=== PATIENT | male | born 1990 | race African-American/Black ===

== ENCOUNTER 2020-07-15 10:53 | Emergency (ER) | payer OTHER, SELFPAY ==
--- NOTE | ~2020-07-15 | US_ITS ---
EXAMINATION: US SCROTUM CLINICAL INFORMATION: Right-sided pain. COMPARISON: Previous exam July 2019 TECHNIQUE: A sonogram of the scrotum was performed assessing nolasco-scale appearance and color Doppler flow. Spectral Doppler analysis of the arterial and venous flow were performed in the testes bilaterally. FINDINGS: RIGHT: Right testicle measures 5.1 x 2.4 x 3.2 cm, volume 21 mL. There are small punctate calcifications in the right testicle or microlithiasis. No focal testicular parenchymal lesions are visualized. Spectral Doppler analysis of the arterial and venous flow is normal in the right testis. Right epididymal head is normal in size. There is a small right hydrocele. No right varicocele is seen. Right epididymal Doppler flow is normal. LEFT: Left testicle measures 5 x 1.9 x 2.8 cm, volume 14 mL. There are small punctate calcifications in the left testicle or microlithiasis. No focal testicular parenchymal lesions are visualized. Spectral Doppler analysis of the arterial and venous flow is normal in the left testis. Left epididymal head is normal in size. There is a small left hydrocele. No left varicocele is seen. Left epididymal Doppler flow is normal. US/US scrotum doppler IMPRESSION: Small bilateral calcifications suggestive of microlithiasis. Small bilateral hydroceles. No evidence of torsion.
--- NOTE | ~2020-07-15 | US_ITS ---
EXAMINATION: Grayscale color and Doppler imaging of the scrotum including waveform spectral analysis of the bilateral arteries and veins in the testicles. See report from ultrasound scrotum Doppler exam the same day.
[2020-07-15 11:16] VITALS: BP 113/75; PULSE 95; RESP 18; TEMP 36.6; O2SAT 98; BMI 25.8
--- NOTE | 2020-07-15 11:16 | ED.MALEGU ---
HPI - Male Genitourinary General Chief complaint: Urogenital-Male Stated complaint: testicular pain Time Seen by Provider: 07/15/20 11:14 Source: patient and old records reviewed Mode of arrival: ambulatory Limitations: no limitations History of Present Illness HPI Narrative: 29 yo male prior visits for testicular pain - states his R testicle swelled the other day not related to trauma or intercourse - wants STI testing MD Complaint: testicle pain and testicle swelling Onset (ago): day(s) (2) Duration: now resolved Location: right testicle Severity: mild Quality: dull Relieving factors: none Exacerbating factors: none Context: other (hx of prior episodes) Associated symptoms: Reports denies other symptoms Related Data Allergies Allergy/AdvReac Type Severity Reaction Status Date / Time Sulfa (Sulfonamide Allergy Severe HIVES Verified 07/15/20 11:21 Antibiotics) [SULFA (SULFONAMIDE ANTIBIOTICS)] Penicillins [PCN] Allergy Unknown UNKNOWN Verified 07/15/20 11:21 Review of Systems Review of Systems: Constitutional : No Weight loss, No Fever, No Chills, No Fatigue, No Malaise ENT/Mouth : No sore throat, No Rhinorrhea Eyes: No Eye Pain, No Swelling, No Redness Cardiovascular : No Chest Pain, No SOB, No Dyspnea on Exertion, No Orthopnea, No Edema, No Palpitations Respiratory : No Cough, No Sputum, No Wheezing Gastrointestinal : No Nausea, No Vomiting, No Diarrhea, No Constipation, No abdominal Pain, No Hematochezia, No Melena Genitourinary : No Dysuria, No Urinary Frequency, No Hematuria, pos testicle pain, no discharge Musculoskeletal : No joint pain, No Myalgias, No Joint Swelling Skin : No Skin Lesions, No rash Neuro : No Weakness, No Numbness, No Dizziness, No Headache Psych : No Anxiety/Panic, No Depression All other systems reviewed and are negative [facility] Past Medical History Medical History (Updated 07/15/20 @ 12:38 by Manuela Shaw DO) Testicular pain Social History Social History (Updated 07/15/20 @ 11:30 by Manuela Shaw DO) Smoking Status: Never smoker Use of substances other than those prescribed or required for medical reasons: No Advance Directives: No Advance Directives Information Provided: No Physical Exam Vital Signs: Vital Signs: Last Vital Signs Temp 98 F 07/15/20 11:16 Pulse 95 07/15/20 11:16 Resp 18 07/15/20 11:16 BP 113/75 07/15/20 11:16 Pulse Ox 98 07/15/20 11:16 Body Mass Index 25.8 Appearance: Alert. Oriented X3. No acute distress. Eyes: Pupils equal, round and reactive to light. ENT: Pharynx normal. Neck: Normal inspection. Neck supple. CVS: Normal heart rate and rhythm. Pulses normal. Respiratory: No respiratory distress. Breath sounds normal. Abdomen: Soft and nontender. no mass felt : normal penis, no rash, no mass felt, no scrotal swelling or ttp Skin: Skin warm and dry. Normal skin color. Normal skin turgor. Extremities: No lower extremity edema. No calf ttp Neuro: Oriented X 3. No motor deficit. No sensory deficit. Course Course Course Narrative: patient had to get his child, had to leave ED will call him with positive results called with results of US MDM - Male Genitourinary MDM Narrative Medical decision making narrative: 29 yo male with hx of testicular pain that has resolved - has had negative workups in the past, has benign exam - US for hydrocele mass ordered, UA and STI panel - dispo per results and findings. Lab Data Labs: Lab Results 07/15/20 Range/Units 12:09 Urine Color YELLOW Urine Appearance CLEAR Urine pH 8.0 (5.0-8.0) Ur Specific [place] 1.020 (1.005-1.025) Urine Protein NEG (NEG-TRACE) MG/DL Urine Glucose (UA) NEG (NEG) MG/DL Urine Ketones NEG (NEG) MG/DL Urine Blood NEG (NEG) Urine Nitrite NEG (NEG) Ur Leukocyte Esterase NEG (NEG) Discharge Plan Discharge Clinical Impression: Pain in testicle Qualifiers: Laterality: right Qualified Code(s): N50.811 - Right testicular pain Patient Disposition: Elopement Instructions: Testicle Pain (ED) Additional Instructions: return to ED for any worsening symptoms or concerns
[2020-07-15 12:30] LABS: Glucose Urine UA NEG (NEG); Leukocyte Esterase Urine NEG (NEG); Nitrite Urine NEG (NEG); Urine Blood NEG (NEG); Urine Ketones NEG (NEG); Urine Protein NEG (NEG-TRACE)
[2020-07-15 12:31] LABS: Appearance Urine CLEAR; Color Urine YELLOW
[2020-07-15 15:08] LABS: CT PCR NOT DETECTED (Not Detect.); NG PCR NOT DETECTED (Not Detect.)
== END 2020-07-15 12:30 | disposition left against medical advice (07) ==
PROVIDERS: Emergency Provider Emergency Medicine; PCP Internal Medicine
DX: N50.811 Right testicular pain (principal)
CPT/HCPCS: 76870; 81003; 87491; 87591; 93975; 99283

== ENCOUNTER 2020-07-19 20:44 | Emergency (ER) | payer OTHER, SELFPAY ==
[2020-07-19 20:46] VITALS: BP 107/57; PULSE 89; RESP 18; TEMP 37.1; O2SAT 99; BMI 24.3
[2020-07-19 21:09] LABS: Glucose Urine UA NEG (NEG); Leukocyte Esterase Urine NEG (NEG); Nitrite Urine NEG (NEG); Specific Gravity - Urine >= 1.030 (1.005-1.025); Urine Blood NEG (NEG); Urine Ketones NEG (NEG); Urine Protein NEG (NEG-TRACE)
[2020-07-19 21:12] LABS: Appearance Urine CLEAR; Color Urine YELLOW
[2020-07-19] MEDS: Azithromycin 500 MG TABLET 1000 MG PO (21:26)
[2020-07-19] MEDS: cefTRIAXone sodium 500 MG, Lidocaine HCl 1 % MPF 1 ML IM (21:26)
--- NOTE | 2020-07-19 21:38 | ED.MALEGU ---
HPI - Male Genitourinary General Chief complaint: Urogenital-Male Stated complaint: ?UTI Time Seen by Provider: 07/19/20 21:00 Source: patient Mode of arrival: ambulatory Limitations: no limitations History of Present Illness HPI Narrative: 29-year-old male with no significant past medical history presents with positive known STI contact, and penile discharge. He does not describe any other symptoms, denies fevers, chills, chest pain or pressure, palpitations, abdominal pain, abdominal distention, dysuria, hematuria, and any other concerning symptoms. He denies testicular pain, testicular swelling, groin pain, or penile pain. MD Complaint: penile discharge and possible STD exposure Onset (ago): day(s) Duration: constant Location: penis Severity: mild Relieving factors: none Exacerbating factors: none Context: new sexual partner and known STD exposure Associated symptoms: Reports denies other symptoms Related Data Sexually active: Yes Allergies Allergy/AdvReac Type Severity Reaction Status Date / Time Sulfa (Sulfonamide Allergy Severe HIVES Verified 07/19/20 20:46 Antibiotics) [SULFA (SULFONAMIDE ANTIBIOTICS)] Penicillins [PCN] Allergy Unknown UNKNOWN Verified 07/19/20 20:46 Review of Systems Review of Systems: Constitutional: No Fever, No Chills ENT/Mouth: No Ear Pain, No Hoarseness, No sore throat Eyes: No Eye Pain, No Swelling, No Redness, No Foreign Body Cardiovascular: No Chest Pain, No SOB Respiratory: No Cough, No Dyspnea Gastrointestinal: No Nausea, No Vomiting, No Diarrhea, No abdominal Pain Genitourinary: Positive penile discharge, No Dysuria, No Hematuria Musculoskeletal: No joint pain, No Myalgias, No Joint Swelling Skin: No Skin lacerations, No rash Neuro: No Weakness, No Numbness, No Paresthesias, No Loss of Consciousness, No Dizziness, No Headache Psych: No Anxiety/Panic, No Depression Heme/Lymph: no easy bruising, no Lymphadenopathy Endocrine: No Polyuria, No Polydipsia Yes all other systems are reviewed and are negative [facility] Past Medical History Attestation statement: The following information was validated with the patient. Source: old records reviewed Medical History (Updated 07/19/20 @ 21:41 by Chely Arzola NP) Testicular pain Social History Social History Alcohol intake: never Smoking Status: Never smoker Smoked in Last 30 Days: No Use of substances other than those prescribed or required for medical reasons: No Substance Use Type: Marijuana Advance Directives: No Advance Directives Information Provided: Yes Physical Exam Vital Signs: Vital Signs: Last Vital Signs Temp 98.8 F 07/19/20 20:46 Pulse 89 07/19/20 20:46 Resp 18 07/19/20 20:46 BP 107/57 L 07/19/20 20:46 Pulse Ox 99 07/19/20 20:46 Body Mass Index 24.3 Appearance: Alert. Oriented X3. No acute distress. Eyes: Pupils equal, round and reactive to light. ENT: Pharynx normal. Neck: Normal inspection. Neck supple. CVS: Normal heart rate and rhythm. Pulses normal. Respiratory: No respiratory distress. Breath sounds normal. Abdomen: Soft and nontender. Skin: Skin warm and dry. Normal skin color. Normal skin turgor. Extremities: No lower extremity edema. Neuro: No motor deficit. No sensory deficit. Course Course Course Narrative: 29-year-old male presents with positive STI exposure. Plan of care is to treat with azithromycin and ceftriaxone IM. We will test for syphilis, patient will return for treatment if syphilis test is positive. Detailed description regarding need for treatment, patient verbalized understanding of and agrees to plan of care. MDM - Male Genitourinary MDM Narrative Medical decision making narrative: Syphilis, chlamydia, gonorrhea Differential Diagnosis Differential diagnosis: Likely urinary tract infection Medical Records Attestation: I reviewed the patient's medical records. Lab Data Attestation: I reviewed the patient's lab results. Labs: Lab Results 07/19/20 Range/Units 20:57 Urine Color YELLOW Urine Appearance CLEAR Urine pH 6.0 (5.0-8.0) Ur Specific [place] >= 1.030 H (1.005-1.025) Urine Protein NEG (NEG-TRACE) MG/DL Urine Glucose (UA) NEG (NEG) MG/DL Urine Ketones NEG (NEG) MG/DL Urine Blood NEG (NEG) Urine Nitrite NEG (NEG) Ur Leukocyte Esterase NEG (NEG) Discharge Plan Discharge Clinical Impression: Sexually transmissible disease Patient Disposition: Home, Self-Care Instructions: Chlamydia (ED), Gonorrhea (ED), Pharyngitis (ED) Additional Instructions: You were evaluated for suspicion of sexually transmitted infection. We treated you for chlamydia and gonorrhea with azithromycin and ceftriaxone. You were also tested for syphilis. If syphilis test comes back positive you must return for treatment. Treatment is an injection of penicillin. Please inform your partner(s) that you were treated for sexually transmitted infection. Do not have sex for 2 weeks or until symptoms have resolved. Thank you for choosing this emergency department for evaluation. Please follow-up with primary care physician as needed. Return to the emergency department for any new, concerning, or worsening symptoms. Interventions: ED Discharge Assessment Last Done: 07/19/20 21:52 Discharge Date/Time: 07/19/20 22:16
[2020-07-20 12:02] LABS: CT PCR NOT DETECTED (Not Detect.); NG PCR NOT DETECTED (Not Detect.)
[2020-07-21 08:07] LABS: Syphilis Screen Nonreactive (Nonreactive)
== END 2020-07-19 22:16 | disposition home or self-care (01) ==
PROVIDERS: Nurse Practitioner Family; Emergency Provider Internal Medicine
DX: R36.9 Urethral discharge, unspecified (principal); Z11.3 Encounter for screening for infections with a predominantly sexual mode of transmission; F12.90 Cannabis use, unspecified, uncomplicated
CPT/HCPCS: 36415; 81003; 86780; 87491; 87591; 96372; 99284; J0696

== ENCOUNTER 2020-07-21 14:25 | Emergency (ER) | payer OTHER, SELFPAY ==
[2020-07-21 15:55] VITALS: BP 137/85; PULSE 93; RESP 18; TEMP 36.7; O2SAT 99; BMI 26.6
[2020-07-21 16:49] LABS: Anion Gap 12 (12-20); Blood Urea Nitrogen 9 mg/dL (9-16); Calcium 9.9 mg/dL (8.4-10.2); Carbon Dioxide 26 mmol/L (22-29); Chloride 104 mmol/L (96-108); Creatinine Clr Calc Pharmacy 89.4; Estimated Glomerular Filt Rate > 60; Glucose Random 100 mg/dL (60-115); Potassium 4.4 mmol/L (3.3-5.1); Sodium 138 mmol/L (135-145)
[2020-07-21 17:30] LABS: Basophils Percent Auto 0.1 % (0-2); Eosinophils Absolute Auto 0.1 X10*3/uL (0.0-0.4); Eosinophils Percent Auto 1.1 % (0-4); Hematocrit 46.8 % (42-52); Hemoglobin 15.6 g/dl (14.0-18.0); Imm Gran Abs Auto 0.01 X10*3/uL (0.00-0.03); Imm Gran Pct Auto 0.1 % (0.0-0.4); Lymphocytes Absolute Auto 0.4 X10*3/uL (1.2-4.9); Lymphocytes Percent Auto 5.3 % (20-40); MANUAL DIFF FLAG SCAN; Mean Corpuscular HGB Conc 33.3 g/dl (31.0-36.0); Mean Corpuscular Hemoglobin 29.2 pg (27.0-33.0); Mean Corpuscular Volume 87.6 fL (80-98); Mean Platelet Volume 9.4 fL (9.4-12.4); Monocytes Absolute Auto 0.5 X10*3/uL (0.1-1.2); Monocytes Percent Auto 6.8 % (2-11); Neutrophils Absolute Auto 6.5 X10*3/uL (2.0-8.3); Neutrophils Percent Auto 86.6 % (45-73); Platelet Count 231 X10*3/uL (160-400); Red Blood Count 5.34 X10*6/uL (4.60-5.80); SCAN SMEAR FLAG 1; White Blood Count 7.5 X10*3/uL (4.8-10.8)
[2020-07-21 17:47] LABS: COVID-19 Test Negative (Negative); IDNOW Serial# 9DD0AD1C
[2020-07-21 17:53] LABS: SLIDE REVIEW VERIFIED
== END 2020-07-21 17:47 | disposition left against medical advice (07) ==
PROVIDERS: Emergency Provider Emergency Medicine; PCP Internal Medicine
DX: R10.9 Unspecified abdominal pain (principal); R11.2 Nausea with vomiting, unspecified; R19.7 Diarrhea, unspecified; Z20.822 Contact with and (suspected) exposure to COVID-19
CPT/HCPCS: 36415; 80048; 85025; 87635; 99281; 99283

== ENCOUNTER 2021-08-28 10:56 | Emergency (ER) | payer OTHER, SELFPAY ==
[2021-08-28 11:00] VITALS: BP 131/58; PULSE 69; RESP 16; TEMP 36.8; O2SAT 96; BMI 26.6
[2021-08-28 11:16] LABS: MANUAL DIFF FLAG NO
[2021-08-28 11:20] LABS: Basophils Percent Auto 0.4 % (0-2); Eosinophils Absolute Auto 0.3 X10*3/uL (0.0-0.4); Eosinophils Percent Auto 6.3 % (0-4); Hematocrit 43.2 % (42.0-52.0); Hemoglobin 14.4 g/dl (14.0-18.0); Imm Gran Abs Auto 0.01 X10*3/uL (0.00-0.03); Imm Gran Pct Auto 0.2 % (0.0-0.4); Lymphocytes Absolute Auto 1.2 X10*3/uL (1.2-4.9); Lymphocytes Percent Auto 21.6 % (20-40); Mean Corpuscular HGB Conc 33.3 g/dl (31.0-36.0); Mean Corpuscular Hemoglobin 29.4 pg (27.0-33.0); Mean Corpuscular Volume 88.2 fL (80.0-98.0); Mean Platelet Volume 9.9 fL (9.4-12.4); Monocytes Absolute Auto 0.6 X10*3/uL (0.1-1.2); Monocytes Percent Auto 11.3 % (2-11); Neutrophils Absolute Auto 3.2 x10*3/uL (2.0-8.3); Neutrophils Percent Auto 60.2 % (45-73); Platelet Count 238 X10*3/uL (160-400); Red Cell Distribution Width 13.3 % (11.0-16.0); White Blood Count 5.4 X10*3/uL (4.8-10.8)
[2021-08-28 11:31] LABS: Alanine Aminotransferase 16 U/L (0-40); Albumin Level 4.1 g/dL (3.5-5.0); Alkaline Phosphatase 53 U/L (39-117); Anion Gap 9 (12-20); Aspartate Amino Transferase 16 U/L (5-37); Bilirubin Total 0.4 mg/dL (0.0-1.0); Blood Urea Nitrogen 8 mg/dL (9-16); Calcium 9.5 mg/dL (8.4-10.2); Carbon Dioxide 29 mmol/L (22-29); Chloride 107 mmol/L (96-108); Creatinine Clr Calc Pharmacy 90.9; Estimated Glomerular Filt Rate > 60; Glucose Random 85 mg/dL (60-115); Potassium 4.1 mmol/L (3.3-5.1); Sodium 141 mmol/L (135-145)
[2021-08-28 15:28] VITALS: BP 106/80; PULSE 55; RESP 20; TEMP 37.1; O2SAT 100
--- NOTE | 2021-08-28 15:53 | ED_ITS ---
HPI - Abdominal Pain General Chief Complaint: Abdominal Pain Stated Complaint: Abd pain Time Seen by Provider: 08/28/21 15:50 Source: patient Mode of arrival: ambulatory Limitations: no limitations History of Present Illness HPI narrative: 30-year-old male presents to the ER for evaluation of possible ST eyes as well as some mild lower abdominal pain and loose stools for 2 days. He states about 3 days ago he had unprotected sex with a new girl, had a ?funny feeling? afterward and started having symptoms of tingling when he urinated. He denies any burning when he passes urine, no urethral discharge or scrotal pain. He reports his lower abdomen intermittently aches any has had some loose stools for 2 days. He states he had 1 time subjective fever 2 nights ago as well. No shortness of breath, cough, runny nose, headaches or body aches. He is most concerned about possible STI. His partners status is unknown. MD elicited complaint: abdominal pain Pertinent past history: none Onset (ago): day(s) (2) Pain Consistency: intermittent Location: suprapubic Severity: mild Quality: aching Radiation: none Migration to: no migration Exacerbating factors: other (Urination) Relieving factors: nothing Associated symptoms: diarrhea Related Data Previous Rx's Medication Instructions Recorded doxycycline hyclate 100 mg tablet 100 mg PO BID #14 tab 08/28/21 levofloxacin 500 mg tablet 500 mg PO DAILY #7 tab 08/28/21 Allergies Allergy/AdvReac Type Severity Reaction Status Date / Time Sulfa (Sulfonamide Allergy Severe HIVES Verified 08/28/21 11:02 Antibiotics) [SULFA (SULFONAMIDE ANTIBIOTICS)] Penicillins [PCN] Allergy Unknown UNKNOWN Verified 08/28/21 11:02 Review of Systems Review of Systems Constitutional: No Fever, No Chills ENT/Mouth: No sore throat, No Rhinorrhea, No Swallowing Difficulty Cardiovascular: No Chest Pain, No SOB Respiratory: No Cough, No Sputum Gastrointestinal: No Nausea, No Vomiting, + Diarrhea, + abdominal Pain Genitourinary: No Dysuria, No Urinary Frequency, No Hematuria, No urethral discharge, no penile lesions Musculoskeletal: No joint pain, No Myalgias Skin: No Skin Lesions, No rash Neuro: No Headache Psych: + Anxiety/Panic, No Depression Heme/Lymph: No Bruising, No Lymphadenopathy PMFSH Past Medical History Medical History (Updated 08/28/21 @ 16:33 by SANJU Bennett) Testicular pain Social History Social History Alcohol intake: never Substance Use Type: Marijuana Advance Directives: No Advance Directives Information Provided: No Physical Exam ED Vital Signs: Vital Signs - 24 hr 08/28/21 11:00 08/28/21 15:28 Temperature 98.2 F 98.7 F Pulse Rate 69 55 Respiratory Rate 16 20 Blood Pressure 131/58 L 106/80 Pulse Oximetry 96 100 BMI result Body Mass Index 26.6 Appearance: Alert. Oriented X3. No acute distress. HEENT: normal external inspection Neck: Normal inspection. Neck supple. CVS: Normal heart rate and rhythm. Pulses normal. Respiratory: No respiratory distress. Breath sounds normal. Abdomen: Soft and nontender. +BS x4 : Normal inspection of external genitalia, no lesions. Testicles are nontender, no palpable masses. Skin: Skin warm and dry. Normal skin color. Normal skin turgor. No rashes. Extremities: No lower extremity edema. Neuro: Oriented X 3. Grossly normal, nonfocal Course Course Course Narrative: 30-year-old male presents to the ER with 2 days of lower abdominal pain and couple episodes of loose stool. His main concern is possible STI after unprotected sexual intercourse 3 days ago. His vital signs are normal in his physical exam is benign. His lab workup is normal. Will treat for possible nabila orrhea and chlamydia. Will check UA for possible UTI. Reevaluation(s) Reevaluation #1: Urinalysis with 2+ leukocyte esterase. Will treat for possible UTI while awaiting urine culture. Will add Levaquin to doxycycline course. Patient counseled on results. Is tolerating p.o. and his abdomen is nontender. He is stable for discharge home with outpatient follow-up. MDM - Abdominal Pain Lab Data Result diagrams: 08/28/21 11:09 08/28/21 11:09 Labs: Lab Results 08/28/21 08/28/21 08/28/21 Range/Units 11:09 11:09 16:21 WBC 5.4 (4.8-10.8) X10*3/uL RBC 4.90 (4.60-5.80) X10*6/uL Hgb 14.4 (14.0-18.0) g/dl Hct 43.2 (42.0-52.0) % MCV 88.2 (80.0-98.0) fL MCH 29.4 (27.0-33.0) pg MCHC 33.3 (31.0-36.0) g/dl RDW 13.3 (11.0-16.0) % Plt Count 238 (160-400) X10*3/uL MPV 9.9 (9.4-12.4) fL Immature Gran % (Auto) 0.2 (0.0-0.4) % Neut % (Auto) 60.2 (45-73) % Lymph % (Auto) 21.6 (20-40) % [place] % (Auto) 11.3 H (2-11) % Eos % (Auto) 6.3 H (0-4) % Baso % (Auto) 0.4 (0-2) % Lymph # (Auto) 1.2 (1.2-4.9) X10*3/uL [place] # (Auto) 0.6 (0.1-1.2) X10*3/uL Eos # (Auto) 0.3 (0.0-0.4) X10*3/uL Baso # (Auto) 0.0 (0.0-0.2) X10*3/uL Abs Immat Gran (auto) 0.01 (0.00-0.03) X10*3/uL Absolute Neuts (auto) 3.2 (2.0-8.3) x10*3/uL Absolute Nucleated RBC 0.000 (0.0-0.012) X10*3/uL Nucleated RBC % (auto) 0.0 (0.0-0.2) /100WBC Sodium 141 (135-145) mmol/L Potassium 4.1 (3.3-5.1) mmol/L Chloride 107 (96-108) mmol/L Carbon Dioxide 29 (22-29) mmol/L Anion Gap 9 L (12-20) BUN 8 L (9-16) mg/dL Creatinine 1.12 (0.5-1.4) mg/dL Estim Creat Clear Calc 90.9 Estimated GFR > 60 Random Glucose 85 (60-115) mg/dL Calcium 9.5 (8.4-10.2) mg/dL Total Bilirubin 0.4 (0.0-1.0) mg/dL AST 16 (5-37) U/L ALT 16 (0-40) U/L Alkaline Phosphatase 53 (39-117) U/L Total Protein 7.0 (6.5-8.0) g/dL Albumin 4.1 (3.5-5.0) g/dL Urine Color YELLOW Urine Appearance CLEAR Urine pH 6.5 (5.0-8.0) Ur Specific [place] 1.015 (1.005-1.025) Urine Protein NEG (NEG-TRACE) MG/DL Urine Glucose (UA) NEG (NEG) MG/DL Urine Ketones 15 (NEG) MG/DL Urine Blood NEG (NEG) Urine Nitrite NEG (NEG) Ur Leukocyte Esterase 2+ H (NEG) Urine RBC 0 (0) /HPF Urine WBC 0-2 (0-4) /HPF Ur Squamous Epith Cells NONE /LPF Urine Bacteria TRACE /LPF Critical Care Time Critical Care Time Critical Care Time: No Discharge Plan Discharge Clinical Impression: Diarrhea Patient Disposition: Home, Self-Care Instructions: Sexually Transmitted Diseases (ED), Urinary Tract Infection in Men (DC) Additional Instructions: Your lab workup today was unremarkable. Your urine test showed evidence of possible urinary tract infection, take the prescribed antibiotic as directed for 1 week, take the entire course. Drink plenty of water and stay hydrated. You were treated and tested for possible sexually transmitted diseases. If your tests are positive we will call you. Take prescribed doxycycline 2 times a day for 1 week to complete ear treatment for sexually transmitted diseases. If you develop new or worsening symptoms call 911 or come back to the ER for further evaluation. Prescriptions: New doxycycline hyclate 100 mg tablet 100 mg PO BID Qty: 14 0RF levofloxacin 500 mg tablet 500 mg PO DAILY Qty: 7 0RF
[2021-08-28 16:30] LABS: Appearance Urine CLEAR; Color Urine YELLOW; Glucose Urine UA NEG (NEG); Leukocyte Esterase Urine 2+ (NEG); Nitrite Urine NEG (NEG); PH 6.5 (5.0-8.0); Specific Gravity - Urine 1.015 (1.005-1.025); UACC Culture Trigger YES; Urine Blood NEG (NEG); Urine Ketones 15 MG/DL (NEG); Urine Protein NEG (NEG-TRACE)
[2021-08-28 16:38] LABS: Bacteria Urine TRACE /LPF; RBC Urine 0 /HPF (0); WBC Urine 0-2 /HPF (0-4)
[2021-08-28 17:00] LABS: IDNOW Serial# 9DB6401D; Influenza A Negative (Negative); Influenza B2 Negative (Negative)
[2021-08-28 17:09] LABS: COVID-19 Test Negative (Negative); IDNOW Serial# 16C4AD1C
[2021-08-28] MEDS: Azithromycin 500 MG TABLET 1000 MG PO (17:15)
[2021-08-28] MEDS: cefTRIAXone sodium 500 MG, Lidocaine HCl 1 % MPF 1 ML IM (17:15)
[2021-08-29 16:55] LABS: CT PCR DETECTED (Not Detect.); NG PCR NOT DETECTED (Not Detect.)
== END 2021-08-28 17:20 | disposition home or self-care (01) ==
PROVIDERS: Physician Assistant; Emergency Provider Internal Medicine; PCP Internal Medicine
DX: R19.7 Diarrhea, unspecified (principal); A74.9 Chlamydial infection, unspecified; Z20.822 Contact with and (suspected) exposure to COVID-19
CPT/HCPCS: 36415; 80053; 81001; 85025; 87086; 87491; 87502; 87591; 87635; 96372; 99282; 99284; J0696

== ENCOUNTER 2024-03-14 08:09 | Emergency (ER) | payer OTHER, SELFPAY ==
[2024-03-14 08:22] VITALS: BP 120/73; PULSE 85; RESP 20; TEMP 36.4; O2SAT 97; BMI 30.1
[2024-03-14 09:04] LABS: IDNOW Serial# 08D9AD1C; Strep A Nucleic Acid Positive (Negative)
[2024-03-14 09:13] LABS: Appearance Urine Clear; Color Urine Yellow; Glucose Urine UA Negative (Negative); Leukocyte Esterase Urine Small (1+) (Negative); Nitrite Urine Negative (Negative); PH 5.5 (5.0-9.0); Specific Gravity - Urine >= 1.030 (1.005-1.025); UMIC TRIGGER UACC YES; Urine Blood Moderate (2+) (Negative); Urine Ketones Trace mg/dL (Negative); Urine Protein 30 (1+) mg/dL (Neg-Trace)
[2024-03-14 09:18] LABS: Bacteria Urine None Seen (None Seen); Hyaline Casts Urine 0-2 /LPF (0-2); Squamous Epithelial Cell Urine 0-2 /HPF (0-2); UACC Culture Trigger YES; WBC Urine 21-50 /HPF (0-5)
--- NOTE | 2024-03-14 09:20 | ED.GENADULT ---
HPI - General Adult General Chief complaint: General Medical Stated complaint: strep throat Time Seen by Provider: 03/14/24 09:05 Source: patient and RN notes reviewed Mode of arrival: ambulatory Limitations: no limitations History of Present Illness ED Provider: Lety Falcon PA-C [facility] narrative: This is a 33-year-old male, with no known medical problems, who presents emergency department with complaints of sore throat x2 days. Patient reports that 2 days ago he awoke with a sore throat. He states that he is still able to swallow without difficulty. He also reports congestion. He denies any fevers, chills, cough, abdominal pain, nausea, vomiting or diarrhea. Patient states that he looked online and was concerned that this was a sexually transmitted infection as he had protected intercourse 2 weeks ago with a female. He has no urinary symptoms. He denies any dysuria, hematuria, urinary frequency, urgency, genitalia rashes, or penile discharge. He is unsure if this female has an STI, states that he is just concerned due to his sore throat. No other complaints or concerns at this time. MD complaint: Sore throat, ? STI exposure Onset (ago): day(s) Radiation: non-radiation Relieving factors: none Exacerbating factors: none Associated symptoms: denies other symptoms Treatments prior to arrival: none Related Data Previous Rx's ?Medication ?Instructions ?Recorded doxycycline hyclate 100 mg tablet 100 mg PO BID #14 tabs 08/28/21 levofloxacin 500 mg tablet 500 mg PO DAILY #7 tabs 08/28/21 acetaminophen 500 mg tablet 500 mg PO Q6H PRN pain #30 tabs 03/14/24 (Tylenol Extra Strength) clindamycin HCl 300 mg capsule 300 mg PO TID 10 days #30 caps 03/14/24 ibuprofen 600 mg tablet 600 mg PO Q6H PRN pain #30 tabs 03/14/24 Allergies Allergy/AdvReac Type Severity Reaction Status Date / Time Sulfa (Sulfonamide Allergy Severe HIVES Verified 03/14/24 08:26 Antibiotics) [SULFA (SULFONAMIDE ANTIBIOTICS)] Penicillins [PCN] Allergy Unknown UNKNOWN Verified 03/14/24 08:26 Review of Systems Review of Systems: Yes all other systems are reviewed and are negative Constitutional: Constitutional: Reports as per [facility] Past Medical History Medical History (Updated 03/14/24 @ 09:31 by SANJU Santillan) Testicular pain Social History Social History Alcohol intake: never Substance Use Type: Marijuana Advance Directives: No Advance Directives Information Provided: Yes Do you have a plan to hurt others: No Plan Physical Exam ED Vital Signs: Vital Signs - 24 hr 03/14/24 08:22 Temperature 97.5 F Pulse Rate 85 Respiratory Rate 20 Blood Pressure 120/73 Pulse Oximetry 97 Oxygen Delivery Method Room Air BMI result Body Mass Index 30.1 Const General: cooperative, comfortable and no acute distress Orientation/consciousness: patient oriented x3 Limitations: no limitations HENMT Other: Tonsils are 1+ bilaterally, erythematous, with exudates noted. He is speaking in full sentences. No trismus, drooling, or dysphonia. Head: Yes normal to inspection, Yes normocephalic and Yes atraumatic Ears: hearing grossly normal bilaterally General nose exam: Normal external nose present Face and sinus: Yes normal facial exam Mouth: Normal oral and palatal mucosa present, oropharynx normal and moist mucous membranes Throat: Yes posterior oropharynx normal Eyes General: appearance normal, both eyes and all related structures Eyelids: Yes eyelids normal Conjunctivae: conjunctivae normal Sclerae: sclerae normal Pupils: Equal, round and reactive pupils present EOM: EOMs intact bilaterally Neck Neck: Yes normal visual inspection, Yes full ROM and Yes no lymphadenopathy Lymphatic: no lymphadenopathy noted Chest Chest palpation & inspection: normal inspection of the chest Resp Effort & Inspection: normal respiratory effort and able to speak in complete sentences Auscultation: clear to auscultation bilaterally, no crackles, no rales, no rhonchi and no wheezes Cardio Rate: regular rate Rhythm: regular rhythm Heart sounds: S1 normal heart sound present and S2 normal heart sound present GI Inspection: Yes normal to inspection Skin General skin exam: no rashes or lesions noted Trauma: no lacerations or abrasions Wounds: no wounds Neuro General: patient oriented x3 and moves all extremities Cranial nerves: Yes Equal, round and reactive pupils present Extrem General: Yes normal to inspection Right upper extremity: normal to inspection Left upper extremity: normal to inspection Right lower extremity: normal to inspection Left lower extremity: normal to inspection Medical Decision Making Medical Decision Making MDM Narrative: This is a 33-year-old male who presents emergency department with concerns for sore throat. On arrival, vital signs within normal limits. He is speaking in full sentences under no acute distress. Oropharynx is erythematous, with tonsillar hypertrophy and exudates noted. 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 No trismus, drooling, or dysphonia. Swabs obtained, positive for strep throat, RSV, COVID, flu pending however patient's symptoms consistent with strep. Urine was obtained, revealing moderate blood, leuk esterases, wbc's and rbc's, he is asymptomatic, has no urinary symptoms, therefore will await for urine culture. Chlamydia and gonorrhea testing also performed, pending at this time. Discussed strict return precautions. He understands and agrees with plan. Will discharge patient with clindamycin as he has a penicillin allergy with an unknown reaction. Advised to follow-up with [facility] for additional STI exposure testing should he be interested in this. He is asymptomatic therefore we discussed prophylactic treatment, he declines at this time. Patient stable for discharge. Differential Diagnosis Differential Diagnoses: The differential diagnosis associated with the presentation includes Strep pharyngitis, CRIMPING MACHINE OPERATOR, URI, tonsillitis Lab Data [facility] Lab Attestation statement: I reviewed the patient's lab results. See [facility] Labs: Lab Results 03/14/24 Range/Units 08:42 Urine Color Yellow Urine Appearance Clear Urine pH 5.5 (5.0-9.0) Ur Specific [place] >= 1.030 H (1.005-1.025) Urine Protein 30 (1+) H (Neg-Trace) mg/dL Urine Glucose (UA) Negative (Negative) mg/dL Urine Ketones Trace (Negative) mg/dL Urine Blood Moderate (2+) H (Negative) Urine Nitrite Negative (Negative) Ur Leukocyte Esterase Small (1+) H (Negative) Urine RBC 6-10 H (0-2) /HPF Urine WBC 21-50 H (0-5) /HPF Ur Squamous Epith Cells 0-2 (0-2) /HPF Urine Bacteria None Seen (None Seen) Hyaline Casts 0-2 (0-2) /LPF S. pyogenes GrpA BRADLY Positive A (Negative) Discharge Plan Discharge Clinical Impression: Strep pharyngitis, Encounter for assessment of STD exposure Patient Disposition: Home, Self-Care Instructions: Strep Throat (ED) Additional Instructions: You were seen in the emergency department due to a sore throat. You tested positive for strep throat. Strep throat as a bacterial infection that requires antibiotic treatment for. Please take prescribed antibiotic as directed, finish the entire course even if your symptoms improve. Because you are allergic to penicillin, we are treating you with clindamycin, this is antibiotic that needs to be taken 3 times a day. Saltwater gargles, warm tea with honey, popsicles can help with your pain. Alternating between ibuprofen and Tylenol can also help. Drink plenty of fluids get plenty of rest. We also tested you for gonorrhea and chlamydia, we will call you if any of these are positive. You may also follow-up with [facility], this is a clinic that performs routine STD testing. They have multiple locations, there is a [facility] and [place]. [address] [phone] be sure to call for their office hours If any new or worsening symptoms occur including but not limited to painful urination, urinary symptoms, chest pain, shortness of breath, please seek emergent care. Prescriptions: New clindamycin HCl 300 mg capsule 300 mg PO TID 10 Days Qty: 30 0RF ibuprofen 600 mg tablet 600 mg PO Q6H PRN (Reason: pain) Qty: 30 0RF acetaminophen [Tylenol Extra Strength] 500 mg tablet 500 mg PO Q6H PRN (Reason: pain) Qty: 30 0RF No Action doxycycline hyclate 100 mg tablet 100 mg PO BID Qty: 14 0RF levofloxacin 500 mg tablet 500 mg PO DAILY Qty: 7 0RF Print Language: Brazilian
[2024-03-14 09:55] VITALS: BP 120/73; PULSE 85; RESP 20; TEMP 36.4; O2SAT 97
[2024-03-14 10:29] LABS: Influenza A PCR NEGATIVE (Negative); Influenza B PCR NEGATIVE (Negative); Resp Syncy Virus RNA Qual PCR NEGATIVE (Negative); SARS COV2 PCR INHOUSE NEGATIVE (Negative)
[2024-03-14 11:51] LABS: CT PCR NOT DETECTED (Not Detect.); NG PCR NOT DETECTED (Not Detect.)
== END 2024-03-14 09:55 | disposition home or self-care (01) ==
PROVIDERS: Emergency Provider Emergency Medicine; PCP Internal Medicine
DX: J02.0 Streptococcal pharyngitis (principal); Z03.818 Encounter for observation for suspected exposure to other biological agents ruled out; Z20.2 Contact with and (suspected) exposure to infections with a predominantly sexual mode of transmission
CPT/HCPCS: 0241U; 81001; 81003; 87086; 87491; 87591; 87651; 99282; 99283

== ENCOUNTER 2024-12-11 13:54 | Emergency (ER) | payer OTHER, SELFPAY ==
[2024-12-11 14:16] VITALS: BP 120/67; PULSE 60; RESP 16; TEMP 37.1; O2SAT 99; BMI 26.3
--- NOTE | 2024-12-11 14:18 | ED_ITS ---
HPI - General Adult General Chief complaint: General Medical Stated complaint: STD Testing Time Seen by Provider: 12/11/24 14:51 Source: patient and old records reviewed Mode of arrival: ambulatory Limitations: no limitations History of Present Illness ED Provider: LEE JEFF narrative: 34 yo male no sig PMH here with c/o dysuria x 2 days told he was exposed to chlamydia no rash or discharge. No n/v no fevers. MD complaint: STI exposure Onset (ago): day(s) Location: genitals Radiation: non-radiation Severity: mild Quality: burning Pain Consistency: intermittent Relieving factors: none Exacerbating factors: other Associated symptoms: denies other symptoms Treatments prior to arrival: none Related Data Previous Rx's ?Medication ?Instructions ?Recorded doxycycline hyclate 100 mg tablet 100 mg PO BID #14 ta bs 08/28/21 levofloxacin 500 mg tablet 500 mg PO DAILY #7 tabs acetaminophen 500 mg tablet 500 mg PO Q6H PRN pain #30 tabs 03/14/24 (Tylenol Extra Strength) clindamycin HCl 300 mg capsule 300 mg PO TID 10 days # 30 caps 03/14/24 ibuprofen 600 mg tablet 600 mg PO Q6H PRN pain #30 t abs 03/14/24 doxycycline hyclate 100 mg capsule 100 mg PO BID 7 day s #14 caps 12/11/24 Allergies Allergy/AdvReac Type Severity Reaction Status Date / Time Sulfa (Sulfonamide Allergy Severe HIVES Verified 12/11/24 14:17 Antibiotics) (SULFA (SULFONAMIDE ANTIBIOTICS)) Penicillins (PCN) Allergy Unknown UNKNOWN Verified 12/11/24 14:17 Review of Systems Review of Systems: Constitutional : No Fever, No Chills, No Fatigue ENT/Mouth : No sore throat, No Rhinorrhea Eyes: No Eye Pain, No Swelling, No Redness Cardiovascular : No Chest Pain, No SOB, No Dyspnea on Exertion Respiratory : No Cough, No Sputum Gastrointestinal : No Nausea, No Vomiting, No Diarrhea, No abdominal Pain Genitourinary : pos Dysuria, No Urinary Frequency, No Hematuria, Musculoskeletal : No joint pain, No Myalgias, No Joint Swelling Skin : No Skin Lesions, No rash All other systems reviewed and are negative PMFSH Past Medical History Attestation statement: The following information was validated with the patient. Source: old records reviewed Medical History Testicular pain Social History Social History Alcohol intake: never Substance Use Type: Marijuana Advance Directives: No Advance Directives Information Provided: No Do you have a plan to hurt others: No Plan Physical Exam ED Vital Signs: Vital Signs - 24 hr 12/11/24 14:16 Temperature 98.8 F Pulse Rate 60 Respiratory Rate 16 Blood Pressure 120/67 Pulse Oximetry 99 Oxygen Delivery Method Room Air BMI result Body Mass Index 26.3 Appearance: Alert. Oriented X3. No acute distress. Eyes: Pupils equal, round and reactive to light. ENT: Pharynx normal. Neck: Normal inspection. CVS: Pulses normal. Respiratory: No respiratory distress. Abdomen: Soft and nontender. Skin: Skin warm and dry. Normal skin color. Extremities: No lower extremity edema. Neuro: Oriented X 3. No motor deficit. No sensory deficit. Course Course Course Narrative: This is a Rapid Medical Examination (RME) performed by Leesa Enciso PA-C in triage. Full HPI, ROS, assessment and treatment plan per primary provider in the Main ED. Hx: 34 yo M here requesting STD testing. reports having protected sex 2 days ago however the condom broke. since has been having burning w/ urination. no penile discharge, lesions. states I have a feeling he was exposed to an std. Plan: UA, CTNG Medical Decision Making Medical Decision Making [facility] Narrative: 34 yo male with no sig PMH here asking for STI prophylaxis he knows he was exposed to chlamydia. He wants testing and treatment will give G+C testing. He is going to follow up with [facility] if he wants HIV testing, etc. Differential Diagnosis Differential Diagnoses: The differential diagnosis associated with the presentation includes STI exposure Lab Data [facility] Lab Attestation statement: I reviewed the patient's lab results. Labs: Lab Results 12/11/24 Range/Units 14:49 Urine Color Yellow Urine Appearance Clear Urine pH 5.5 (5.0-9.0) Ur Specific [place] 1.020 (1.005-1.025) Urine Protein Negative (Neg-Trace) mg/dL Urine Glucose (UA) Negative (Negative) mg/dL Urine Ketones Negative (Negative) mg/dL Urine Blood Negative (Negative) Urine Nitrite Negative (Negative) Ur Leukocyte Esterase Negative (Negative) External Record Review External record reviewed: Outpatient record Prescription Management I considered prescription management with: Other Discharge Plan Discharge Clinical Impression: Possible exposure to STI Patient Disposition: Home, Self-Care Instructions: Sexually Transmitted Diseases (ED) Additional Instructions: You were found to have a sexually transmitted infection or concern for sexually transmitted infection on your visit today. You were given medications to treat you in the Emergency Department but if you were given antibiotics to take at home it is important you finish all these medications. Your sexual partners need to be advised they should seek care as well. It is important you abstain from sexual activity while you are on your antibiotics or having active symptoms. We will notify you of any POSITIVE pending results. For further testing including HIV and follow up for your visit you can reach out to your primary care doctor, [facility], or [facility]. [place] [phone] [place] [address] [phone] On doxycycline, do not take pills immediately before going to bed and swallow pills with plenty of water. Avoid direct sunlight, iron, antacids, and Pepto Bismol. Call your provider if you develop new ringing in your ears, new problems hearing, dizziness, difficulty swallowing, rash, abdominal discomfort, nausea, or diarrhea.? Prescriptions: New doxycycline hyclate 100 mg capsule 100 mg PO BID 7 Days Qty: 14 0RF No Action doxycycline hyclate 100 mg tablet 100 mg PO BID Qty: 14 0RF levofloxacin 500 mg tablet 500 mg PO DAILY Qty: 7 0RF clindamycin HCl 300 mg capsule 300 mg PO TID 10 Days Qty: 30 0RF ibuprofen 600 mg tablet 600 mg PO Q6H PRN (Reason: pain) Qty: 30 0RF acetaminophen [Tylenol Extra Strength] 500 mg tablet 500 mg PO Q6H PRN (Reason: pain) Qty: 30 0RF Print Language: Swedish
[2024-12-11 14:58] LABS: Appearance Urine Clear; Glucose Urine UA Negative (Negative); PH 5.5 (5.0-9.0); Specific Gravity - Urine 1.020 (1.005-1.025)
[2024-12-11 15:20] VITALS: BP 121/62; PULSE 62; RESP 15; TEMP 37; O2SAT 100
[2024-12-11] MEDS: cefTRIAXone sodium 500 MG, Lidocaine HCl 1 % MPF 1 ML IM (15:28)
[2024-12-11 15:34] VITALS: BP 121/62; PULSE 62; RESP 15; TEMP 37; O2SAT 100
[2024-12-11 16:34] LABS: CT PCR Urine NOT DETECTED (Not Detect.); NG PCR Urine NOT DETECTED (Not Detect.)
== END 2024-12-11 15:39 | disposition home or self-care (01) ==
PROVIDERS: Physician Assistant Medical; Emergency Provider Emergency Medicine; PCP Internal Medicine
DX: R30.0 Dysuria (principal); Z20.2 Contact with and (suspected) exposure to infections with a predominantly sexual mode of transmission
CPT/HCPCS: 81003; 87491; 87591; 96372; 99283; 99284; J0696; J2003